=== PATIENT | male | born 1960 ===

== ENCOUNTER 2025-08-29 06:20 | Day surgery (SDC) | payer BC, SELFPAY ==
[2025-08-29 07:45] LABS: Glucose - Point of Care 96 mg/dl (70-99)
== END 2025-08-29 09:31 | disposition home or self-care (01) ==
LOC: GI 06:20
PROVIDERS: ATTENDING PHYSICIAN Internal Medicine Gastroenterology
DX: Z12.11 Encounter for screening for malignant neoplasm of colon (principal); K64.8 Other hemorrhoids; K62.6 Ulcer of anus and rectum; K62.89 Other specified diseases of anus and rectum; D12.4 Benign neoplasm of descending colon; D12.0 Benign neoplasm of cecum; K62.1 Rectal polyp; Z83.719 Family history of colon polyps, unspecified
CPT/HCPCS: 45385; 45380; 82962; 88305